=== PATIENT | male | born 1955 | race Caucasian/White ===

== ENCOUNTER → 2016-12-22 15:15 | Outpatient (CLI) | payer OTHER | END | disposition home or self-care (01) | LOC: D.LAB 15:15 | DX: M25.532 Pain in left wrist (principal) ==

== ENCOUNTER → 2016-12-31 09:24 | Outpatient (CLI) | payer OTHER | END | disposition home or self-care (01) | LOC: D.MRI 09:24 | DX: M25.532 Pain in left wrist (principal) ==

== ENCOUNTER → 2017-01-24 11:39 | Outpatient (CLI) | payer OTHER ==
[2017-01-24 12:27] LABS: BASOPHILS 0.4 % (0-2); EOSINOPHILS 3.8 % (0-7); HEMATOCRIT 42.6 % (42.0-54.0); HEMOGLOBIN 14.4 g/dL (13.5-17.5); IMMATURE GRANULOCYTES 0.6 % (0-5); LYMPHOCYTES 28.5 % (15-50); MCH 30.6 pg (26.0-34.0); MCHC 33.8 g/dL (31.0-37.0); MCV 90.4 fL (80.0-100.0); MEAN PLATELET VOLUME 10.2 fL (7.4-10.4); MONOCYTES 11.5 % (2-11); NEUTROPHILS 55.2 % (40-80); PLATELET COUNT 256 10x3/uL (130-400); RBC 4.71 10x6/uL (4.20-6.10); RDW 12.3 % (11.5-14.5); WBC 4.7 10x3/uL (4.8-10.8)
[2017-01-24 13:15] LABS: ERYTHROCYTE SEDIMENTATION RATE 5 mm/hr (0-20)
[2017-01-25 11:17] LABS: ANA REFLEX - DIRECT Negative (Negative)
[2017-01-25 21:07] LABS: CYCLIC CITRULL PEPTIDE IGG/IGA 7 units (0-19)
== END | disposition home or self-care (01) ==
LOC: D.LAB 11:39
PROVIDERS: Orthopaedic Surgery Hand Surgery
DX: M25.539 Pain in unspecified wrist (principal)